=== PATIENT | female | born 1980 | race Caucasian/White ===

== ENCOUNTER 2022-07-25 15:04 | Outpatient (CLI) | payer OTHER, SELFPAY ==
--- NOTE | ~2022-07-25 | US_ITS ---
EXAMINATION: US pelvic complete w TV DATE: 07/25/2022 15:36 INDICATION: Pelvic pain. IUD. Comparison:No prior studies for comparison. TECHNIQUE: Multiple transabdominal and endovaginal sonographic images of the pelvis performed. FINDINGS: The uterus measures 7.8 x 3.3 x 5 cm. The endometrial complex measures 4 mm. IUD is present in the endometrium. The right ovary measures 4.3 x 1.8 x 2.2 cm and the left ovary measures 2.6 x 1.9 x 1.6 cm. There ar e small follicles in each ovary. Normal doppler signal in both ovaries. There is a right ovarian cyst measuring 3.6 cm. There is no free fluid in the pelvis. There are no abnormal masses seen on either side. IMPRESSION: 1. Right ovarian cyst measuring 3.6 cm. 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
== END 2022-07-25 15:05 ==
PROVIDERS: PCP Family Medicine Sports Medicine; Visit Provider Obstetrics & Gynecology
DX: R10.2 Pelvic and perineal pain (principal); N83.201 Unspecified ovarian cyst, right side
CPT/HCPCS: 76830; 76856

== ENCOUNTER 2023-12-27 22:07 | Emergency (ER) | payer OTHER, SELFPAY ==
--- NOTE | ~2023-12-27 | XR_ITS ---
EXAM: XR knee LT min 4V DATE: 12/27/2023 22:46 HISTORY: FALL/ALL OVER PAIN . COMPARISON: None available. FINDINGS: Normal mineralization. No fracture or dislocation. No lytic or blastic lesion. Joint space s are maintained. No erosion or periosteal change. Prepatellar soft tissue swelling. IMPRESSION: No acute osseous finding. Prepatellar contusion or bursitis. Reviewed, dictated and finalized at location K.
[2023-12-27 22:07] VITALS: BP 120/77; PULSE 88; RESP 18; TEMP 36.8; O2SAT 98
--- NOTE | 2023-12-27 22:13 | PC.NURSE ---
warm blankets given. ice pack to left knee. er provider notified that patient is in room 2
--- NOTE | 2023-12-27 22:27 | PC.NURSE ---
ER provider at the bedside
--- NOTE | 2023-12-27 22:32 | ED.LOWEXIN ---
HPI - Extremity Injury (Lower) General Chief Complaint: Extremity Injury, Lower Stated Complaint: L knee injury Time Seen by Provider: 12/27/23 22:16 Source: patient Mode of arrival: ambulatory Limitations: no limitations History of Present Illness HPI Narrative: Patient is a 43-year-old female with a left knee injury prior to arrival. She was at work and tripped and fell onto her left knee. She sustained a left knee injury. No head or neck injury. MD complaint: knee injury ( Left) Onset (ago): hour(s) (1) Type of Injury: blunt Place: work Severity: moderate Severity scale (1-10): 5 Relieving factors: cold therapy and immobilization Exacerbating factors: weight bearing, movement and palpation Context: direct blow Associated symptoms: swelling and able to partially bear weight Other symptoms: none Treatments prior to arrival: cold therapy and other ( Tylenol) Related Data Home Medications Medication Instructions Recorded Confirmed levonorgestrel 21 mcg/24 hr (up to 1 device intrauterine ONCE 11/27/21 12/27/23 8 years) 52 mg intrauterine device (Mirena) methylphenidate HCl 54 mg 54 mg PO QAM 11/27/21 12/27/23 tablet,extended release 24 hr (Concerta) Allergies Allergy/AdvReac Type Severity Reaction Status Date / Time naproxen Allergy Unknown Hives Verified 11/27/21 15:16 1/ SENSITIVITY TO NAPRYSN. Allergy Unknown Hives Uncoded 11/27/21 15:16 LACTOSE INTOLERANT. Allergy Unknown Abdominal Uncoded 11/27/21 15:16 Pain SALICYLATES Allergy Unknown Unknown Uncoded 11/27/21 15:16 NAPROXEN (Generic Allergy) Allergy Y Uncoded 11/27/21 15:16 Review of Systems Review of Systems: All systems reviewed & are unremarkable except as noted in HPI and below Constitutional: Constitutional: Reports no additional constitutional complaints Eyes: Eyes: Reports no additional eye complaints ENT: Reports system reviewed and no additional complaints, except as documented Cardiovascular: Cardiovascular: Reports no additional cardiovascular complaints Respiratory: Respiratory: Reports no additional respiratory complaints Gastrointestinal: Gastrointestinal: Reports no additional gastrointestinal complaints Genitourinary: Genitourinary: Reports no additional female genitourinary complaints Musculoskeletal: Musculoskeletal: Reports no additional musculoskeletal complaints Integumentary/Breasts: Skin/Breast: Reports system reviewed and no additional complaints, except as docu Neurologic: Reports system reviewed and no additional complaints, except as documented Psychiatric: Psychiatric: Reports no additional psychiatric complaints Endocrine: Endocrine: Reports no additional endocrine complaints Hematologic/Lymphatic: Hematologic/Lymphatic: Reports no additional hematologic/lymphatic complaints Allergic/Immunologic: Allergic/Immunologic: Reports no additional allergic/immunologic complaints PMFSH Past Medical History Medical History ADD (attention deficit disorder) ADHD Encounter for IUD insertion 04/05/17 Mirena insertion Screening mammogram, encounter for Surgical History Surgical History [place] teeth extracted (~1996) Family History Family History Mother Cerebrovascular accident Breast cancer Grandparent Diabetes mellitus maternal grandmother Father Skin cancer Sibling Breast cancer sister Social History Social History Smoking status: Never smoker Alcohol intake: current Drinks per week: 5 Substance use: never Substance use type: does not use Living arrangements: other Additional living arrangements comments: Occupation/Education: occupation Additional occupation/education comments: production zone leader at [employer] Gender identity (if verbalize
[2023-12-27] MEDS: HYDROcodone/acetaminophen (*CRX) 5-325 MG TABLET 1 TAB PO (22:36)
--- NOTE | 2023-12-27 22:37 | PC.NURSE ---
xray at the bedside
--- NOTE | 2023-12-27 22:45 | PC.NURSE ---
patient was taken to the bathroom via stretcher. patient hopped to the toilet and back to stretcher. call light returned. son at the bedside
--- NOTE | 2023-12-27 23:08 | PC.NURSE ---
felix wrap to left knee placed by Patricia garcia. patient taking ice pack home
[2023-12-27 23:09] VITALS: BP 122/74; PULSE 84; RESP 18; O2SAT 100
== END 2023-12-27 23:09 | disposition home or self-care (01) ==
PROVIDERS: Emergency Provider Emergency Medicine; PCP Family Medicine
DX: S83.92XA Sprain of unspecified site of left knee, initial encounter (principal); S80.02XA Contusion of left knee, initial encounter; W01.0XXA Fall on same level from slipping, tripping and stumbling without subsequent striking against object, initial encounter
CPT/HCPCS: 73564; 99283; A9270